=== PATIENT | female | born 1975 | race Caucasian/White ===

== ENCOUNTER 2018-08-15 10:30 | Day surgery (SDC) | payer MEDICARE ==
[~2018-08-15 10:30] MED LIST: PROPOFOL INJ 200 MG/20 ML VIAL IV ONE
--- NOTE | 2018-08-15 12:57 | Operative Report ---
Operative Report DATE OF SURGERY: 08/15/18 Operative Report: The risks, benefits and alternatives of the procedure including the risk of bleeding, perforation requiring surgery have been explained to the patient in detail and informed consent has been obtained. Patient is taken back to the endoscopy suite and placed in the left, lateral decubital position. Timeout was called. Propofol medication is administered. A rectal examination is done which did not reveal any masses, tears or fissures. An Olympus videoscope was introduced into the patient's rectum. The scope was then carefully advanced all the way to the cecum. The cecum was identified by the usual anatomical landmarks including the ileocecal valve as well as the appendiceal office. Photodocumentation is obtained. Scope was then sequentially pulled back via the various segments of the colon including the ascending colon, hepatic flexure, transverse colon, splenic flexure, descending colon and finally into the rectosigmoid portions of the colon. Retroflexion maneuvers performed. The risks benefits and alternatives of the procedure explained to the patient in detail and informed consent is obtained.A GIF Olympus video scope was inserted into the patient's mouth and hypopharynx, the esophagus is identified intubated and insufflated, the scope was then advanced through the esophagus stomach and duodenum, retroflexion maneuver is done, the esophagus stomach and first and second portions of the duodenum examined. PREOPERATIVE DIAGNOSIS: Iron deficiency anemia rule out GI bleed POSTOPERATIVE DIAGNOSIS: Gastric bypass operation. Duodenal biopsies rule out for celiac sprue. Gastritis status post biopsy. Mild terminal ileitis status post biopsy rule out Crohn's disease. No GI bleeding noted OPERATION: Colonoscopy with biopsy. EGD with biopsy SURGEON: JAMMIE MILLS ANESTHESIA: LMAC TISSUE REMOVED OR ALTERED: As noted above. COMPLICATIONS: None. ESTIMATED BLOOD LOSS: None. INTRAOPERATIVE FINDINGS: As noted above. PROCEDURE: Patient tolerated the procedure well. No immediate postprocedure complications are noted. Patient is discharged in good condition. Discharge date 08/15/2018. Discharge diet: Regular. Discharge activity: Regular. 2 to 3-week follow-up to discuss findings. Patient is instructed to call the office or proceed to the emergency room should there be any further problems or questions. Wait on the pathology.
[2018-08-15 14:10] VITALS: BP 112/62
== END 2018-08-15 12:21 | disposition home or self-care (01) ==
LOC: END 10:30
PROVIDERS: ATTEND Internal Medicine Gastroenterology
DX: K52.9 Noninfective gastroenteritis and colitis, unspecified (principal); K29.50 Unspecified chronic gastritis without bleeding; D50.0 Iron deficiency anemia secondary to blood loss (chronic); Z98.84 Bariatric surgery status; F17.210 Nicotine dependence, cigarettes, uncomplicated
CPT/HCPCS: 43239; 45380; 88305 ×2; 00813; J2704; 813

== ENCOUNTER 2018-09-23 20:10 | Emergency (ER) | payer MEDICARE ==
[~2018-09-23 20:10] MED LIST changes: -PROPOFOL INJ 200 MG/20 ML VIAL IV ONE; +SUCCINYLCHOLINE CHLORIDE INJ 200 MG/10 ML VIAL ONE
[2018-09-23] MEDS ORDERED: BENZTROPINE MESYLATE INJ 2 MG/2 ML AMPULE IM STA (20:39)
[2018-09-23] MEDS ORDERED: RINGERS SOLUTION,LACTATED 1,000 ML IV ONE (20:40)
--- NOTE | 2018-09-23 20:44 | ER Document Report ---
ED General - General Chief Complaint: Probable Seizure Stated Complaint: ALTERED MENTAL STATUS Time Seen by Provider: 09/23/18 20:23 Primary Care Provider: CHUCHO KAHN MD [Primary Care Provider] - Follow up as needed Notes: Patient is a 43-year-old female with bipolar disorder, and history of substance abuse that presents to the emergency department for chief complaint of seizure and twitching. Patient states that she was not feeling well, and is having spasming, and called to her fianc, who came inside and helped her to the couch, and shortly after she had what looked like to him as a seizure for lasting at least 1 minute, then resolved, the patient was seemingly confused afterwards, and may have bit her tongue, she is had seizures in the past, but they are due to Xanax withdrawal, she states she does not use Xanax currently. She also states she is been having tics and spasming, over the past several months, she does take multiple medications including Lamictal, Seroquel, buspirone, and an S SRI, for her mental health. She states she used to be on Cogentin but is not taking it now and has not for a while. She denies any alcohol use on a daily basis. At this time she states she is feeling better, just feeling "out of it", and still having the twitching, which is unchanged from the past few months. Denies having any chest pain, shortness of breath, nausea, vomiting or abdominal pain, denies having any recent illnesses such as fevers, cough or runny nose. Per EMS the patient's blood sugar was noted to be 57, she was given oral glucagon and it did come up above 130. Past Medical History: Bipolar disorder, history of multi-substance abuse Past Surgical History: Gastric bypass surgery Social History: Admits to smoking cigarettes, rare alcohol use, former multi- substance abuse Family History: Reviewed and noncontributory for presenting illness Allergies: Reviewed, see documented allergy list. REVIEW OF SYSTEMS: Other than noted above, the 12 point review of systems was reviewed with the patient and were negative, all pertinent findings are included in the HPI. PHYSICAL EXAMINATION: Vital signs reviewed, nursing noted reviewed. GENERAL: Patient is alert and oriented x4, but is somewhat somnolent, but is alert answering questions appropriately. HEAD: Atraumatic, normocephalic. EYES: Eyes appear normal, extraocular movements intact, sclera anicteric, conjunctiva are normal. PERRLA, no nystagmus ENT: nares patent, oropharynx clear without exudates. Moist mucous membranes. NECK: Normal range of motion, supple without lymphadenopathy LUNGS: Breath sounds clear to auscultation bilaterally and equal. No wheezes rales or rhonchi. HEART: Regular rate and rhythm without murmurs ABDOMEN: Soft, nontender, normoactive bowel sounds. No rebound, guarding, or rigidity. No masses appreciated. EXTREMITIES: Nontender, good range of motion, no pitting or edema. NEUROLOGICAL: On exam patient is having intermittent twitches/tics noted of the neck and upper and lower extremities bilaterally. moves all extremities spontaneously Motor and sensory grossly intact on exam. PSYCH: Normal mood, normal affect. SKIN: Warm, Dry, normal turgor, no rashes or lesions noted on exposed skin TRAVEL OUTSIDE OF THE [place] IN LAST 30 DAYS: No - Related Data Allergies/Adverse Reactions: No Known Allergies Allergy (Unverified 08/15/18 10:45) Past Medical History - Social History Smoking Status: Current Every Day Smoker Family History: Reviewed & Not Pertinent - Past Medical History Cardiac Medical History: Denies: Hx Coronary Artery Disease, Hx Heart Attack, Hx Hypertension Pulmonary Medical History: Denies: Hx Asthma, Hx Bronchitis, Hx COPD, Hx Pneumonia Neurological Medical History: Reports: Hx Seizures - 2006 FROM XANAX WITHDRAWAL. Denies: Hx Cerebrovascular Accident Musculoskeletal Medical History: Denies Hx Arthritis - Immunizations Hx Diphtheria, Pertussis, Tetanus Vaccination: No Physical Exam - Vital signs Vitals: Resp Pulse Ox 17 93 09/23/18 20:14 09/23/18 20:14 Course - Re-evaluation Re-evalutation: Patient seen and examined, vital signs reviewed, initial exam the patient was mildly somnolent, but answering questions appropriately, noted to have some tremoring on exam, which is felt to be possible extraparametal symptoms from the multiple psych medications that she is on including Seroquel, lamotrigine, Wellbutrin and an SSRI, she did improve after receiving Cogentin, blood work is obtained, however shortly into the patient's ED course, she became unresponsive, and was having nystagmus, and was not responding to any verbal or noxious stimuli, and was concerning for possible recurrence of seizure, and patient at that point was given 2 mg of Ativan, however she continued to be somnolent, and was not responsive, was given additional 2 mg, she did become more responsive, was opening eyes, but not following commands, at this point she was sent over the CT scanner, and her CT appeared to be negative for any acute intracranial abnormality. 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 At this point it was decided to intubate the patient, which is done so successfully with the 7.5 ET tube, patient was marlyn maryjane on the ventilator, was oxygenating well, blood pressure remained stable, she was initially placed on Versed infusion, however patient became agitated on the ventilator, was asynchronous, and was therefore given a bolus of IV fentanyl 150 mcg, and switched to propofol infusion, and weaned off the Versed. Patient was more stable on the ventilator, blood pressure remained stable, at this point due to my concern for nonconvulsive status epilepticus, I placed a call to [facility] to transfer the patient, patient's blood work was reviewed, is essentially unremarkable, with the exception of her blood glucose which is 55, however when Accu-Chek was performed, it was 104, and repeat was in the 90s, and continued to be monitored, was not dropping further. Case was discussed with the assistant professor of nursing at [facility], who graciously except the patient on the service, attending physician will be Dr. Fleming, patient be transported by ALS ground transport. Patient is remained stable on the ventilator, with propofol for sedation, blood pressures remained stable, heart rate is well, ABG was obtained demonstrated very mild respiratory acidosis, vent settings were adjusted, her oxygen FiO2 was decreased to 40%, patient was tolerating well, 100% SPO2. Patient's fianc was updated at bedside, understands plan of care and transfer to tertiary facility. Laboratory 09/23/18 09/23/18 09/23/18 20:15 20:49 20:49 WBC 7.0 RBC 4.18 Hgb 10.1 L Hct 31.7 L MCV 76 L MCH 24.1 L MCHC 31.8 L RDW 25.2 H Plt Count 200 Seg Neutrophils % 70.5 Lymphocytes % 15.8 Monocytes % 9.4 Eosinophils % 3.2 Basophils % 1.1 Absolute Neutrophils 5.0 Absolute Lymphocytes 1.1 Absolute Monocytes 0.7 Absolute Eosinophils 0.2 Absolute Basophils 0.1 Platelet Comment ADEQUATE Polychromasia SLIGHT Hypochromasia 1+ Poikilocytosis SLIGHT Anisocytosis 3+ Target Cells SLIGHT Sodium 136.9 L Potassium 4.6 Chloride 105 Carbon Dioxide 27 Anion Gap 5 BUN 10 Creatinine 0.83 Est GFR ( Amer) > 60 Est GFR (Non-Af Amer) > 60 Glucose 55 L POC Glucose 89 Calcium 8.3 L Total Bilirubin Direct Bilirubin Neonat Total Bilirubin Neonat Direct Bilirubin Neonat Indirect Bili AST ALT Alkaline Phosphatase Total Protein Albumin Serum HCG, Qual Salicylates Acetaminophen Serum Alcohol 09/23/18 09/23/18 09/23/18 20:49 21:26 21:51 WBC RBC Hgb Hct MCV MCH MCHC RDW Plt Count Seg Neutrophils % Lymphocytes % Monocytes % Eosinophils % Basophils % Absolute Neutrophils Absolute Lymphocytes Absolute Monocytes Absolute Eosinophils Absolute Basophils Platelet Comment Polychromasia Hypochromasia Poikilocytosis Anisocytosis Target Cells Sodium Potassium Chloride Carbon Dioxide Anion Gap BUN Creatinine Est GFR ( Amer) Est GFR (Non-Af Amer) Glucose POC Glucose 105 Calcium Total Bilirubin 0.2 Direct Bilirubin 0.2 Neonat Total Bilirubin Not Reportable Neonat Direct Bilirubin Not Reportable Neonat Indirect Bili Not Reportable AST 58 H ALT 49 Alkaline Phosphatase 114 Total Protein 6.1 L Albumin 3.4 L Serum HCG, Qual NEGATIVE Salicylates Acetaminophen Serum Alcohol 09/23/18 09/23/18 09/23/18 21:51 22:02 22:34 WBC RBC Hgb Hct MCV MCH MCHC RDW Plt Count Seg Neutrophils % Lymphocytes % Monocytes % Eosinophils % Basophils % Absolute Neutrophils Absolute Lymphocytes Absolute Monocytes Absolute Eosinophils Absolute Basophils Platelet Comment Polychromasia Hypochromasia Poikilocytosis Anisocytosis Target Cells Sodium Potassium Chloride Carbon Dioxide Anion Gap BUN Creatinine Est GFR ( Amer) Est GFR (Non-Af Amer) Glucose POC Glucose 91 94 Calcium Total Bilirubin Direct Bilirubin Neonat Total Bilirubin Neonat Direct Bilirubin Neonat Indirect Bili AST ALT Alkaline Phosphatase Total Protein Albumin Serum HCG, Qual Salicylates < 1.0 L Acetaminophen < 10 L Serum Alcohol < 10 Laboratory 09/23/18 09/23/18 09/23/18 20:15 20:49 20:49 WBC 7.0 RBC 4.18 Hgb 10.1 L Hct 31.7 L MCV 76 L MCH 24.1 L MCHC 31.8 L RDW 25.2 H Plt Count 200 Seg Neutrophils % 70.5 Lymphocytes % 15.8 Monocytes % 9.4 Eosinophils % 3.2 Basophils % 1.1 Absolute Neutrophils 5.0 Absolute Lymphocytes 1.1 Absolute Monocytes 0.7 Absolute Eosinophils 0.2 Absolute Basophils 0.1 Platelet Comment ADEQUATE Polychromasia SLIGHT Hypochromasia 1+ Poikilocytosis SLIGHT Anisocytosis 3+ Target Cells SLIGHT Carbonic Acid HCO3/H2CO3 Ratio ABG pH ABG pCO2 ABG pO2 ABG HCO3 ABG Total CO2 ABG O2 Saturation ABG Base Excess FiO2 Sodium 136.9 L Potassium 4.6 Chloride 105 Carbon Dioxide 27 Anion Gap 5 BUN 10 Creatinine 0.83 Est GFR ( Amer) > 60 Est GFR (Non-Af Amer) > 60 Glucose 55 L POC Glucose 89 Calcium 8.3 L Total Bilirubin Direct Bilirubin Neonat Total Bilirubin Neonat Direct Bilirubin Neonat Indirect Bili AST ALT Alkaline Phosphatase Total Protein Albumin Serum HCG, Qual Urine Color Urine Appearance Urine pH Ur Specific [place] Urine Protein Urine Glucose (UA) Urine Ketones Urine Blood Urine Nitrite Urine Bilirubin Urine Urobilinogen Ur Leukocyte Esterase Urine WBC (Auto) U Hyaline Cast (Auto) Urine Mucus (Auto) Urine Ascorbic Acid Salicylates Urine Opiates Screen Urine Methadone Screen Acetaminophen Ur Barbiturates Screen Ur Phencyclidine Scrn Ur Amphetamines Screen U Benzodiazepines Scrn Urine Cocaine Screen U Marijuana (THC) Screen Serum Alcohol 09/23/18 09/23/18 09/23/18 20:49 21:26 21:51 WBC RBC Hgb Hct MCV MCH MCHC RDW Plt Count Seg Neutrophils % Lymphocytes % Monocytes % Eosinophils % Basophils % Absolute Neutrophils Absolute Lymphocytes Absolute Monocytes Absolute Eosinophils Absolute Basophils Platelet Comment Polychromasia Hypochromasia Poikilocytosis Anisocytosis Target Cells Carbonic Acid HCO3/H2CO3 Ratio ABG pH ABG pCO2 ABG pO2 ABG HCO3 ABG Total CO2 ABG O2 Saturation ABG Base Excess FiO2 Sodium Potassium Chloride Carbon Dioxide Anion Gap BUN Creatinine Est GFR ( Amer) Est GFR (Non-Af Amer) Glucose POC Glucose 105 Calcium Total Bilirubin 0.2 Direct Bilirubin 0.2 Neonat Total Bilirubin Not Reportable Neonat Direct Bilirubin Not Reportable Neonat Indirect Bili Not Reportable AST 58 H ALT 49 Alkaline Phosphatase 114 Total Protein 6.1 L Albumin 3.4 L Serum HCG, Qual NEGATIVE Urine Color Urine Appearance Urine pH Ur Specific [place] Urine Protein Urine Glucose (UA) Urine Ketones Urine Blood Urine Nitrite Urine Bilirubin Urine Urobilinogen Ur Leukocyte Esterase Urine WBC (Auto) U Hyaline Cast (Auto) Urine Mucus (Auto) Urine Ascorbic Acid Salicylates Urine Opiates Screen Urine Methadone Screen Acetaminophen Ur Barbiturates Screen Ur Phencyclidine Scrn Ur Amphetamines Screen U Benzodiazepines Scrn Urine Cocaine Screen U Marijuana (THC) Screen Serum Alcohol 09/23/18 09/23/18 09/23/18 21:51 22:02 22:34 WBC RBC Hgb Hct MCV MCH MCHC RDW Plt Count Seg Neutrophils % Lymphocytes % Monocytes % Eosinophils % Basophils % Absolute Neutrophils Absolute Lymphocytes Absolute Monocytes Absolute Eosinophils Absolute Basophils Platelet Comment Polychromasia Hypochromasia Poikilocytosis Anisocytosis Target Cells Carbonic Acid HCO3/H2CO3 Ratio ABG pH ABG pCO2 ABG pO2 ABG HCO3 ABG Total CO2 ABG O2 Saturation ABG Base Excess FiO2 Sodium Potassium Chloride Carbon Dioxide Anion Gap BUN Creatinine Est GFR ( Amer) Est GFR (Non-Af Amer) Glucose POC Glucose 91 94 Calcium Total Bilirubin Direct Bilirubin Neonat Total Bilirubin Neonat Direct Bilirubin Neonat Indirect Bili AST ALT Alkaline Phosphatase Total Protein Albumin Serum HCG, Qual Urine Color Urine Appearance Urine pH Ur Specific [place] Urine Protein Urine Glucose (UA) Urine Ketones Urine Blood Urine Nitrite Urine Bilirubin Urine Urobilinogen Ur Leukocyte Esterase Urine WBC (Auto) U Hyaline Cast (Auto) Urine Mucus (Auto) Urine Ascorbic Acid Salicylates < 1.0 L Urine Opiates Screen Urine Methadone Screen Acetaminophen < 10 L Ur Barbiturates Screen Ur Phencyclidine Scrn Ur Amphetamines Screen U Benzodiazepines Scrn Urine Cocaine Screen U Marijuana (THC) Screen Serum Alcohol < 10 09/23/18 09/23/18 09/24/18 23:10 23:10 00:22 WBC RBC Hgb Hct MCV MCH MCHC RDW Plt Count Seg Neutrophils % Lymphocytes % Monocytes % Eosinophils % Basophils % Absolute Neutrophils Absolute Lymphocytes Absolute Monocytes Absolute Eosinophils Absolute Basophils Platelet Comment Polychromasia Hypochromasia Poikilocytosis Anisocytosis Target Cells Carbonic Acid 1.46 H HCO3/H2CO3 Ratio 17:1 ABG pH 7.34 L ABG pCO2 48.4 H ABG pO2 138.6 H ABG HCO3 25.5 H ABG Total CO2 27.0 H ABG O2 Saturation 98.6 H ABG Base Excess -0.7 FiO2 40% Sodium Potassium Chloride Carbon Dioxide Anion Gap BUN Creatinine Est GFR ( Amer) Est GFR (Non-Af Amer) Glucose POC Glucose Calcium Total Bilirubin Direct Bilirubin Neonat Total Bilirubin Neonat Direct Bilirubin Neonat Indirect Bili AST ALT Alkaline Phosphatase Total Protein Albumin Serum HCG, Qual Urine Color YELLOW Urine Appearance CLEAR Urine pH 6.0 Ur Specific [place] 1.010 Urine Protein NEGATIVE Urine Glucose (UA) NEGATIVE Urine Ketones NEGATIVE Urine Blood NEGATIVE Urine Nitrite NEGATIVE Urine Bilirubin NEGATIVE Urine Urobilinogen NEGATIVE Ur Leukocyte Esterase NEGATIVE Urine WBC (Auto) 1 U Hyaline Cast (Auto) 1 Urine Mucus (Auto) RARE Urine Ascorbic Acid NEGATIVE Salicylates Urine Opiates Screen NEGATIVE Urine Methadone Screen NEGATIVE Acetaminophen Ur Barbiturates Screen NEGATIVE Ur Phencyclidine Scrn NEGATIVE Ur Amphetamines Screen NEGATIVE U Benzodiazepines Scrn NEGATIVE Urine Cocaine Screen NEGATIVE U Marijuana (THC) Screen NEGATIVE Serum Alcohol 09/24/18 00:27 WBC RBC Hgb Hct MCV MCH MCHC RDW Plt Count Seg Neutrophils % Lymphocytes % Monocytes % Eosinophils % Basophils % Absolute Neutrophils Absolute Lymphocytes Absolute Monocytes Absolute Eosinophils Absolute Basophils Platelet Comment Polychromasia Hypochromasia Poikilocytosis Anisocytosis Target Cells Carbonic Acid HCO3/H2CO3 Ratio ABG pH ABG pCO2 ABG pO2 ABG HCO3 ABG Total CO2 ABG O2 Saturation ABG Base Excess FiO2 Sodium Potassium Chloride Carbon Dioxide Anion Gap BUN Creatinine Est GFR ( Amer) Est GFR (Non-Af Amer) Glucose POC Glucose 91 Calcium Total Bilirubin Direct Bilirubin Neonat Total Bilirubin Neonat Direct Bilirubin Neonat Indirect Bili AST ALT Alkaline Phosphatase Total Protein Albumin Serum HCG, Qual Urine Color Urine Appearance Urine pH Ur Specific [place] Urine Protein Urine Glucose (UA) Urine Ketones Urine Blood Urine Nitrite Urine Bilirubin Urine Urobilinogen Ur Leukocyte Esterase Urine WBC (Auto) U Hyaline Cast (Auto) Urine Mucus (Auto) Urine Ascorbic Acid Salicylates Urine Opiates Screen Urine Methadone Screen Acetaminophen Ur Barbiturates Screen Ur Phencyclidine Scrn Ur Amphetamines Screen U Benzodiazepines Scrn Urine Cocaine Screen U Marijuana (THC) Screen Serum Alcohol - Vital Signs Vital signs: Temp Pulse Resp BP Pulse Ox 98.5 F 12 149/97 H 100 09/23/18 20:34 09/24/18 00:36 09/24/18 00:36 09/24/18 00:36 - Laboratory Result Diagrams: 09/23/18 20:49 09/23/18 20:49 Laboratory results interpreted by me: 09/23/18 09/23/18 09/23/18 20:49 20:49 21:51 Hgb 10.1 L Hct 31.7 L MCV 76 L MCH 24.1 L MCHC 31.8 L RDW 25.2 H Carbonic Acid ABG pH ABG pCO2 ABG pO2 ABG HCO3 ABG Total CO2 ABG O2 Saturation Sodium 136.9 L Glucose 55 L Calcium 8.3 L AST 58 H Total Protein 6.1 L Albumin 3.4 L Salicylates Acetaminophen 09/23/18 09/24/18 21:51 00:22 Hgb Hct MCV MCH MCHC RDW Carbonic Acid 1.46 H ABG pH 7.34 L ABG pCO2 48.4 H ABG pO2 138.6 H ABG HCO3 25.5 H ABG Total CO2 27.0 H ABG O2 Saturation 98.6 H Sodium Glucose Calcium AST Total Protein Albumin Salicylates < 1.0 L Acetaminophen < 10 L - EKG Interpretation by Me Additional EKG results interpreted by me: EKG demonstrates sinus rhythm with a ventricular rate of 87 bpm, no axis, normal intervals, no evidence of acute ischemia in this EKG, no prior for comparison at this time. Procedures - Intubation Orotracheal Airway evaluation: Normal anatomy Mallampati Classification: Class 2 Medications: Etomidate - 20mg, Succinylcholine - 150mg Intubation method: Orotracheal Blade type: Glenda Blade size: 4 Equipment used: Glidescope ETT size: 7.5 ETT secured at: Lips ETT secured at (cm): 23 Breath Sounds after Intubation: Equal End tidal CO2 confirmed: Yes Ventilator settings: SIMV Tidal volume: 500 FiO2: 60 Respirations: 12 Pressure support: 10 PEEP: 5 Post Intubation Xray: Yes Intubation Complications: No complications Critical Care Note - Critical Care Note Total time excluding time spent on procedures (mins): 55 Comments: Critical care time 55 minutes exclusive from separate billable procedures for a patient requiring complex medical decision making, and high potential for clinical deterioration. In a patient with concern for nonconvulsive status epilepticus, requiring intubation and transfer to tertiary facility. Time spent obtaining history from patient or surrogate, discussions with consultants, development of treatment plan with patient or surrogate, evaluation of patient's response to treatment, examination of patient, ordering and performing treatments and interventions, ordering and review of laboratory studies, re- evaluation of patient's condition, ordering and review of radiographic studies and review of old charts Discharge - Discharge Clinical Impression: Status epilepticus Acute respiratory failure Qualifiers: Respiratory failure complication: unspecified whether with hypoxia or hypercapnia Qualified Code(s): J96.00 - Acute respiratory failure, unspecified whether with hypoxia or hypercapnia Condition: Stable Disposition: [facility] Referrals: CHUCHO KAHN MD [Primary Care Provider] - Follow up as needed
[2018-09-23 21:06] LABS: ABSOLUTE BASOPHILS # (AUTO) 0.1 10^3/uL (0.0-0.2); ABSOLUTE EOSINOPHILS # (AUTO) 0.2 10^3/uL (0.0-0.6); ABSOLUTE LYMPHOCYTES (AUTO) 1.1 10^3/uL (0.5-4.7); ABSOLUTE MONOCYTES (AUTO) 0.7 10^3/uL (0.1-1.4); BASOPHILS % (AUTO) 1.1 % (0-2); EOSINOPHILS % (AUTO) 3.2 % (0-6); HEMATOCRIT 31.7 % (36.0-47.0); HEMOGLOBIN 10.1 g/dL (12.0-15.5); LYMPHOCYTES % (AUTO) 15.8 % (13-45); MEAN CORPUSCULAR HEMOGLOBIN 24.1 pg (27.0-33.4); MEAN CORPUSCULAR HGB CONC 31.8 g/dL (32.0-36.0); MEAN CORPUSCULAR VOLUME 76 fl (80-97); MONOCYTES % (AUTO) 9.4 % (3-13); PLATELET COUNT 200 10^3/uL (150-450); RED BLOOD COUNT 4.18 10^6/uL (3.72-5.28); RED CELL DISTRIBUTION WIDTH 25.2 % (11.5-14.0); SEGMENTED NEUTROPHILS % (AUTO) 70.5 % (42-78); TOTAL CELLS COUNTED % (AUTO) 100 %
[2018-09-23 21:21] LABS: ANION GAP 5 (5-19); ANISOCYTOSIS 3+; BLOOD UREA NITROGEN 10 mg/dL (7-20); CALCIUM 8.3 mg/dL (8.4-10.2); CARBON DIOXIDE 27 mmol/L (22-30); CHLORIDE 105 mmol/L (98-107); HYPOCHROMASIA 1+; PLATELET COMMENT ADEQUATE; POIKILOCYTOSIS SLIGHT; POLYCHROMASIA SLIGHT; POTASSIUM 4.6 mmol/L (3.6-5.0); TARGET CELLS SLIGHT
[2018-09-23 21:23] LABS: GLUCOSE 55 mg/dL (75-110)
[2018-09-23] MEDS ORDERED: DEXTROSE 50%-WATER 25 GM/50 ML DISP.SYRIN IV ONE (21:23)
[2018-09-23] MEDS ORDERED: LORAZEPAM INJ 2 MG/1 ML VIAL ONE ×2 (22:01→22:05)
[2018-09-23] MEDS ORDERED: ETOMIDATE INJ/PF 20 MG/10 ML SDV IV ONE (22:06)
[2018-09-23] MEDS ORDERED: LORAZEPAM INJ 2 MG/1 ML VIAL IV ONE (22:06)
[2018-09-23] MEDS ORDERED: MIDAZOLAM HCL 50 MG/100 ML RTUINJ IV PRN (22:07)
[2018-09-23] MEDS ORDERED: SUCCINYLCHOLINE CHLORIDE INJ 200 MG/10 ML VIAL IV ONE (22:07)
[2018-09-23 22:17] LABS: ALBUMIN 3.4 g/dL (3.5-5.0); ALKALINE PHOSPHATASE 114 U/L (38-126); ASPARTATE AMINO TRANSFERASE 58 U/L (14-36); BILIRUBIN,DIRECT 0.2 mg/dL (0.0-0.4); BILIRUBIN,TOTAL 0.2 mg/dL (0.2-1.3); TOTAL PROTEIN 6.1 g/dL (6.3-8.2)
[2018-09-23 22:23] LABS: ACETAMINOPHEN < 10 ug/mL (10-30); ALCOHOL < 10 mg/dL (NONE DETECTED); SALICYLATE < 1.0 mg/dL (2.0-20.0)
[2018-09-23] MEDS ORDERED: AMMONIA INHALANTS 10 AMPUL/BOX IH ONE (22:26)
--- NOTE | 2018-09-23 22:38 | RADIOLOGY REPORT (SQ) ---
EXAM DESCRIPTION: [facility]: CT HEAD WITHOUT IV CONTRAST CLINICAL HISTORY: 43 years Female; seizures TECHNIQUE: Noncontrast CT head. All CT scans at this facility use dose modulation, iterative reconstruction, and/or weight based dosing when appropriate to reduce radiation dose to as low as reasonably achievable. COMPARISON: None. FINDINGS: Horne matter, white matter, ventricles, and cisterns are within normal limits. No acute hemorrhage or mass effect. Visualized portions of paranasal sinuses and mastoids are clear. Visualized portions of the calvarium are within normal limits. IMPRESSION: 1. Normal noncontrast CT of the brain
[2018-09-23] MEDS ORDERED: FENTANYL CITRATE INJ/PF 100 MCG/2 ML AMPUL ONE (22:59)
[2018-09-23] MEDS ORDERED: PROPOFOL 1,000 MG/100 ML INFUS..BTL IV ONE (23:04)
[2018-09-23] MEDS: PROPOFOL 1,000 MG/100 ML INFUS..BTL IV PRN (23:05)
--- NOTE | 2018-09-23 23:24 | RADIOLOGY REPORT (SQ) ---
EXAM DESCRIPTION: XR CHEST 1 VIEW COMPLETED DATE/TME: 09/23/2018 00:00 CLINICAL HISTORY: 43 years Female, POST INTUBATION COMPARISON: None. NUMBER OF VIEWS/TECHNIQUE: 1/AP FINDINGS: Adequate lung volume, small linear atelectasis or scar of the left lower lung field, normal cardiac silhouette, and intact bony thorax. Adequate appearing endotracheal tube. Adequate appearing enteric tube. IMPRESSION: No acute cardiopulmonary findings. Intubated.
[2018-09-23 23:30] LABS: APPEARANCE,URINE CLEAR; BILIRUBIN,URINE NEGATIVE (NEGATIVE); COLOR,URINE YELLOW; GLUCOSE, URINE NEGATIVE (NEGATIVE); KETONES,URINE NEGATIVE (NEGATIVE); LEUKOCYTE ESTERASE,URINE NEGATIVE (NEGATIVE); NITRITE,URINE NEGATIVE (NEGATIVE); PROTEIN,URINE NEGATIVE (NEGATIVE); UROBILINOGEN,URINE NEGATIVE mg/dL (<2.0)
[2018-09-23] MEDS ORDERED: FENTANYL CITRATE INJ/PF 100 MCG/2 ML AMPUL IV ONE (23:30)
[2018-09-23 23:42] LABS: URINE AMPHETAMINES SCREEN NEGATIVE; URINE BARBITURATES SCREEN NEGATIVE; URINE BENZODIAZEPINES SCREEN NEGATIVE; URINE COCAINE SCREEN NEGATIVE; URINE MARIJUANA (THC) SCREEN NEGATIVE; URINE METHADONE SCREEN NEGATIVE; URINE PHENCYCLIDINE SCREEN NEGATIVE
[2018-09-24 00:39] LABS: ARTERIAL BLOOD BASE EXCESS -0.7 mmol/L; ARTERIAL BLOOD H2CO3 1.46 mmol/L (1.05-1.35); ARTERIAL BLOOD HCO3 25.5 mmol/L (20-24); ARTERIAL BLOOD O2 SATURATION 98.6 % (94-98); ARTERIAL BLOOD PCO2 48.4 mmHg (35-45); ARTERIAL BLOOD PH 7.34 (7.35-7.45); ARTERIAL BLOOD PO2 138.6 mmHg (80-100)
[2018-09-24 00:41] LABS: ARTERIAL BLOOD FIO2 40%
[2018-09-24 02:00] VITALS: BP 153/94
[2018-09-24] MEDS: PROPOFOL 1,000 MG/100 ML INFUS..BTL IV PRN (02:09)
== END 2018-09-24 02:30 | disposition short-term general hospital (02) ==
LOC: ER 20:10
PROC: 0BH17EZ Insertion of Endotracheal Airway into Trachea, Via Natural or Artificial Opening (ICD-10-PCS; principal; 2018-09-23)
DX: J96.00 Acute respiratory failure, unspecified whether with hypoxia or hypercapnia (principal); G40.901 Epilepsy, unspecified, not intractable, with status epilepticus; R41.82 Altered mental status, unspecified; F19.10 Other psychoactive substance abuse, uncomplicated; M62.838 Other muscle spasm; Z79.899 Other long term (current) drug therapy; F17.210 Nicotine dependence, cigarettes, uncomplicated
CPT/HCPCS: 99291; 96361; 96374; 96375; 36415; 82962; 80307 ×4; 82803; 84703; 85025; 80076; 80048; 81001; 71045; 70450; 94660; 36600; 31500; A9270; J0515; J3010; J2704 ×2; J2060; J0330; J2250; J7120; J3490

== ENCOUNTER 2019-07-19 11:30 | Day surgery (SDC) | payer MEDICARE, MEDICAID ==
[2019-07-19] MEDS ORDERED: PROPOFOL INJ 200 MG/20 ML VIAL IV ONE (11:53)
[2019-07-19] MEDS ORDERED: DIPHENHYDRAMINE HCL 50 MG/ML VIAL IV PRN (12:21)
[2019-07-19] MEDS ORDERED: OXYCODONE-ACETAMINOPHEN 5-325 MG TABLET PO PRN ×2 (12:21)
[2019-07-19] MEDS ORDERED: FENTANYL CITRATE INJ/PF 100 MCG/2 ML AMPUL IV PRN ×3 (12:21)
[2019-07-19] MEDS ORDERED: MEPERIDINE HCL/PF INJ 25 MG/1 ML DISP.SYRIN IV PRN (12:21)
[2019-07-19] MEDS ORDERED: PROMETHAZINE HCL INJ 25 MG/1 ML VIAL IV PRN ×2 (12:21)
[2019-07-19 14:19] VITALS: BP 135/81
--- NOTE | 2019-07-19 20:06 | Operative Report ---
Operative Report DATE OF SURGERY: 07/19/19 Operative Report: The risks, benefits and alternatives are discussed with the patient in detail Propofol sedation is administered EGD is completed patient appears to have a gastric pouch with a Edward N-Y anastomosis both efferent and afferent loops are visualized PREOPERATIVE DIAGNOSIS: epigastric pain , rule out ulcer POSTOPERATIVE DIAGNOSIS: inflammation in the gastric pouch. biopsies obtained. small gastric erosion noted , likely explains the pain OPERATION: EGD with biopsy SURGEON: JAMMIE MILLS ANESTHESIA: LMAC TISSUE REMOVED OR ALTERED: as noted above COMPLICATIONS: none ESTIMATED BLOOD LOSS: none INTRAOPERATIVE FINDINGS: as noted above PROCEDURE: patient tolerated the procedure well no post procedure complications are noted patient is discharged in good condition discharge date: 07/19/19 discharge diet and activity : regular follow up on biopsy patient to call the office or go to ED if needed
== END 2019-07-19 13:55 | disposition home or self-care (01) ==
LOC: OROUT 11:30
PROVIDERS: ATTEND Internal Medicine Gastroenterology
DX: K29.50 Unspecified chronic gastritis without bleeding (principal); K25.9 Gastric ulcer, unspecified as acute or chronic, without hemorrhage or perforation; F17.210 Nicotine dependence, cigarettes, uncomplicated; B18.2 Chronic viral hepatitis C; K21.9 Gastro-esophageal reflux disease without esophagitis; Z79.899 Other long term (current) drug therapy; Z03.818 Encounter for observation for suspected exposure to other biological agents ruled out
CPT/HCPCS: 43239; 82962; 81025; 88342 ×2; 88305 ×2; 00731; U0003; J2704; 731; 87635

== ENCOUNTER 2019-08-02 07:43 | Emergency (ER) | payer MEDICARE, MEDICAID ==
[2019-08-02] MEDS ORDERED: PREDNISONE 20 MG TABLET PO ONE (10:03)
[2019-08-02] MEDS ORDERED: KETOROLAC TROMETHAMINE 60 MG/2 ML SDV IM ONE (10:03)
--- NOTE | 2019-08-02 10:09 | ER Document Report ---
ED Extremity Problem, Lower - General Chief Complaint: Leg Pain Stated Complaint: LEG PAIN Time Seen by Provider: 08/02/19 09:53 Primary Care Provider: CHUCHO KAHN MD [Primary Care Provider] - Follow up as needed Notes: CHIEF COMPLAINT: Low back pain and leg pain HPI: 44-year-old female who is obese who has a history of prior lumbar surgery years ago presenting for pain in the lower back with radiation through the gluteal region and down the anterior left thigh. No perineal numbness. No incontinence of urine or bowel. Denies prior history of similar discomfort. Did not call her PCP for evaluation of symptoms. No fevers no pelvic or abdominal pain no flank pain ROS: See HPI - all other systems were reviewed and are otherwise negative Constitutional: no fever GI: no vomiting, no diarrhea, no abdominal pain : no dysuria Integumentary: no rash Allergy: no hives Musculoskeletal: no extremity pain or swelling, positive back pain Neurological: no numbness/tingling, no weakness MEDICATIONS: I agree with the patient medications as charted by the RN. ALLERGIES: I agree with the allergies as charted by the RN. PAST MEDICAL HISTORY/PAST SURGICAL HISTORY: Reviewed and agree as charted by RN. SOCIAL HISTORY: Reviewed and agree as charted by RN. FAMILY HISTORY: No significant familial comorbid conditions directly related to patient complaint EXAM: Reviewed vital signs as charted by RN. CONSTITUTIONAL: Alert and oriented and responds appropriately to questions. Well-appearing; well-nourished, mild distress secondary to pain HEAD: Normocephalic; atraumatic EYES: PERRL; Conjunctivae clear, sclerae non-icteric ENT: normal nose; no rhinorrhea; moist mucous membranes NECK: Supple without meningismus; non-tender; no cervical lymphadenopathy, no masses CARD: RRR; no murmurs, no clicks, no rubs, no gallops; symmetric distal pulses RESP: Normal chest excursion without splinting or tachypnea; breath sounds clear and equal bilaterally; no wheezes, no rhonchi, no rales, pulse oximetry 98% on room air not hypoxic ABD/GI: Normal bowel sounds; non-distended; soft, non-tender, no rebound, no guarding; no palpable organomegaly or masses. BACK: The back appears normal and is non-tender to palpation directly over the lumbar spine, there is no CVA tenderness. Mild tenderness to the upper aspect of the left gluteus into the lateral thigh on the left EXT: Normal ROM in all joints; non-tender to palpation; no cyanosis, no effusions, no edema SKIN: Normal color for age and race; warm; dry; good turgor; no acute lesions noted NEURO: Moves all extremities equally; Motor and sensory function intact. Strength equal 5/5 bilateral lower extremities. Sensation intact and equal bilateral lower extremities. Straight leg raise is negative. No saddle anesthesia on exam. DTRs 2+ intact and equal bilateral lower extremities. PSYCH: The patient's mood and manner are appropriate. Grooming and personal hygiene are appropriate. 44-year-old female presenting for evaluation of pain in the left lower back through the gluteus into the thigh consistent with sciatica. No saddle anesthesia on exam to suggest cauda equina. Will treat with steroids anti- inflammatories short course of pain medication referral to orthopedics MDM: TRAVEL OUTSIDE OF THE [place] IN LAST 30 DAYS: No - Related Data Allergies/Adverse Reactions: No Known Allergies Allergy (Unverified 08/15/18 10:45) Home Medications: Motrin PRN, Chantix bid, omperazole, epclusa, serqauil Past Medical History - Social History Smoking Status: Current Some Day Smoker Chew tobacco use (# tins/day): No Frequency of alcohol use: None Drug Abuse: None Family History: Reviewed & Not Pertinent Patient has homicidal ideation: No - Past Medical History Cardiac Medical History: Denies: Hx Coronary Artery Disease, Hx Heart Attack, Hx Hypertension Pulmonary Medical History: Denies: Hx Asthma, Hx Bronchitis, Hx COPD, Hx Pneumonia Neurological Medical History: Reports: Hx Seizures - 2006 FROM XANAX WITHDRAWAL. Denies: Hx Cerebrovascular Accident Renal/ Medical History: Denies: Hx Peritoneal Dialysis Musculoskeletal Medical History: Denies Hx Arthritis - Immunizations Hx Diphtheria, Pertussis, Tetanus Vaccination: No Physical Exam - Vital signs Vitals: Temp Pulse Resp BP Pulse Ox 99.1 F 81 20 135/79 H 97 08/02/19 07:47 08/02/19 07:47 08/02/19 07:47 08/02/19 07:47 08/02/19 07:47 Course - Vital Signs Vital signs: Temp Pulse Resp BP Pulse Ox 99.1 F 81 20 135/79 H 97 08/02/19 08:03 08/02/19 07:47 08/02/19 07:47 08/02/19 07:47 08/02/19 07:47 Discharge - Discharge Clinical Impression: Sciatica, left side Condition: Stable Disposition: HOME, SELF-CARE Instructions: Sciatica ([facility]) Additional Instructions: 1. Warm heat to the lower back twice daily 2. no heavy lifting for 2-3 days 3. medications as prescribed, no driving on narcotics 4. follow up with orthopedics for further evaluation and treatment as needed for any continuing pain or problems, call for appt. 5. return to the ER for any onset of incontinence of urine, fever > 101 or worsening condition Prescriptions: Prednisone [Deltasone 20 mg Tablet] 2 tab PO DAILY 5 Days #10 tablet Hydrocodone/Acetaminophen [[place] 5-325 mg Tablet] 1 tab PO Q4 PRN #15 tablet PRN Reason: Diclofenac Sodium [Voltaren 50 Mg Tablet.] 50 mg PO BID #20 tablet. Referrals: CHUCHO KAHN MD [Primary Care Provider] - Follow up as needed VAISHALI LAKHANI JR, DO [ACTIVE PROVISIONAL STAFF] - Follow up as needed
[2019-08-02 10:38] VITALS: BP 127/86
== END 2019-08-02 10:38 | disposition home or self-care (01) ==
LOC: ER 07:43
DX: M54.32 Sciatica, left side (principal); M54.5 Low back pain; M79.605 Pain in left leg; Z79.899 Other long term (current) drug therapy; F17.200 Nicotine dependence, unspecified, uncomplicated
CPT/HCPCS: 99283; 96372; J1885; A9270; J7512

== ENCOUNTER 2019-08-16 08:41 | Emergency (ER) | payer MEDICARE, MEDICAID ==
[2019-08-16] MEDS ORDERED: HYDROMORPHONE HCL INJ/PF 2 MG/ML AMPULE IM ONE ×2 (11:06→12:23)
[2019-08-16] MEDS ORDERED: KETOROLAC TROMETHAMINE 60 MG/2 ML SDV IM ONE (11:06)
--- NOTE | 2019-08-16 11:09 | ER Document Report ---
HPI - HPI Patient complains to provider of: low back pain Time Seen by Provider: 08/16/19 10:37 Onset: Other - 3 wk Onset/Duration: Persistent Quality of pain: Sharp Pain Level: 5 Context: Patient presents complaint of low back pain for the past 3 weeks that radiates to the left hip. Patient also complains of left lower anterior leg tenderness. Patient did have lateral thigh tenderness that seems to be better at this time. Patient denies any fever, urinary retention or incontinence. Patient denies any injury. Associated Symptoms: denies: Fever, Headache, Weakness Exacerbated by: Movement, Walking Relieved by: Denies Similar symptoms previously: Yes Recently seen / treated by doctor: No - ROS ROS below otherwise negative: Yes Systems Reviewed and Negative: Yes All other systems reviewed and negative - NEURO Neurology: DENIES: Headache, Weakness - GASTROINTESTINAL Gastrointestinal: DENIES: Nausea - REPRODUCTIVE Reproductive: DENIES: : - MUSCULOSKELETAL Musculoskeletal: REPORTS: Extremity pain, Back Pain - DERM Skin Color: Normal Past Medical History - General Information source: Patient - Social History Smoking Status: Current Every Day Smoker Frequency of alcohol use: None Drug Abuse: None Occupation: none Family History: Reviewed & Not Pertinent Patient has homicidal ideation: No Neurological Medical History: Reports: Hx Seizures - 2006 FROM XANAX WITHDRAWAL. Denies: Hx Cerebrovascular Accident Renal/ Medical History: Denies: Hx Peritoneal Dialysis Musculoskeletal Medical History: Reports Hx Arthritis Psychiatric Medical History: Reports: Hx Anxiety, Hx Depression Past Surgical History: Reports: Hx Gastric Bypass Surgery, Hx Orthopedic Surgery - spinal surgery - Immunizations Hx Diphtheria, Pertussis, Tetanus Vaccination: No Vertical Provider Document - CONSTITUTIONAL Agree With Documented VS: Yes Exam Limitations: No Limitations General Appearance: WD/WN, No Apparent Distress Notes: PHYSICAL EXAMINATION: GENERAL: Well-appearing, well-nourished and in no acute distress. Patient repositioning frequently at bedside HEAD: Atraumatic, normocephalic. EYES: sclera clear, anicteric, conjunctiva are normal. ENT: nares patent, Moist mucous membranes. NECK: Normal range of motion, supple no lymphadenopathy LUNGS: respirations unlabored HEART: Regular rate and rhythm without murmurs EXTREMITIES: Normal range of motion, no pitting or edema. No cyanosis. Gait normal, pt ambulates without difficulty BACK: Left lower lumbar paraspinal tenderness, left SI joint tenderness, no lumbar midline tenderness, no deformities or step-offs. No CVA tenderness. NEUROLOGICAL: Cranial nerves grossly intact. Normal speech, normal gait. No saddle anesthesia. No foot drop PSYCH: Normal mood, normal affect. SKIN: Warm, Dry, normal turgor, no rashes or lesions noted. - INFECTION CONTROL TRAVEL OUTSIDE OF THE [place] IN LAST 30 DAYS: No Course - Re-evaluation Re-evalutation: 08/16/19 13:39 Patient has current prescription for oxycodone at home. Patient advised that I cannot write additional narcotics although her primary doctor can adjust her prescription as needed. Patient will be given a prescription for the lidocaine patches. Patient does report improvement of her pain symptoms at this time. The patient presents with low back pain without signs of spinal cord compression, cauda equina syndrome, infection, aneurysm, or other serious etiology. The patient is neurologically intact. Given the extremely risk of these diagnoses further testing and evaluation for these possibilities does not appear to be indicated at this time. Patient has been instructed to return if the symptoms worsen or change in any way. - Vital Signs Vital signs: Temp Pulse Resp BP Pulse Ox 98.6 F 81 16 145/93 H 97 08/16/19 09:08 08/16/19 08:44 08/16/19 08:44 08/16/19 08:44 08/16/19 08:44 - Diagnostic Test Radiology reviewed: Reports reviewed Discharge - Discharge Clinical Impression: Lumbar radiculopathy Sciatica Qualifiers: Laterality: left Qualified Code(s): M54.32 - Sciatica, left side Condition: Stable Disposition: HOME, SELF-CARE Instructions: Radiculopathy ([facility]), Sciatica ([facility]) Additional Instructions: Return immediately for any new or worsening symptoms Followup with your primary care provider, call tomorrow to make a followup appointment Follow-up with orthopedics as planned Follow-up with pain management for further evaluation Prescriptions: Lidocaine [Lidoderm 5% (700 mg) Transdermal Patch] 1 patch TP DAILY PRN #10 adh..patch PRN Reason: Referrals: CHUCHO KAHN MD [Primary Care Provider] - Follow up as needed [facility] [Provider Group] - Follow up as needed
--- NOTE | 2019-08-16 12:00 | RADIOLOGY REPORT (SQ) ---
EXAM DESCRIPTION: L SPINE WHOLE IMAGES COMPLETED DATE/TIME: 08/16/2019 11:39 am REASON FOR STUDY: low back pain COMPARISON: None. NUMBER OF VIEWS: Five views including obliques. TECHNIQUE: AP, lateral, oblique, and sacral radiographic images acquired of the lumbar spine. LIMITATIONS: None. FINDINGS: MINERALIZATION: Normal. SEGMENTATION: Normal. No transitional anatomy. ALIGNMENT: Normal. VERTEBRAE: Maintained height. No fracture or worrisome bone lesion. DISCS: Preserved height. No significant osteophytes or end plate irregularity. POSTERIOR ELEMENTS: Pedicles and facets are intact. No pars defect or posterior arch defects. HARDWARE: The patient is status post lumbosacral fusion with interbody spacer. There is no evidence of hardware fracture, perihardware lucency or migration. PARASPINAL SOFT TISSUES: Chain sutures are seen within the left upper quadrant. PELVIS: Intact as visualized. No fractures or worrisome bone lesions. SI joints intact. OTHER: No other significant finding. IMPRESSION: Status post lumbosacral fusion without evidence of hardware complication. TECHNICAL DOCUMENTATION: JOB ID: [id number] [employer]- All Rights Reserved Reading location - IP/workstation name: [email or web address]
[2019-08-16] MEDS ORDERED: LIDOCAINE 5% (700 MG) TRANSDERMAL ADH..PATCH TP ONE (12:23)
[2019-08-16 13:35] VITALS: BP 148/86
== END 2019-08-16 13:56 | disposition home or self-care (01) ==
LOC: ER 08:41
DX: M54.16 Radiculopathy, lumbar region (principal); M54.32 Sciatica, left side; F17.200 Nicotine dependence, unspecified, uncomplicated; Z98.84 Bariatric surgery status
CPT/HCPCS: 99283; 96372; 72110; J1885; J1170; A9270

== ENCOUNTER 2020-01-23 10:48 | Day surgery (SDC) | payer MEDICARE, MEDICAID ==
[~2020-01-23 10:48] MED LIST changes: +CEFAZOLIN 2 GM/D5W RTU 2 GM/50 ML RTUPB IV PRN; +DEXAMETHASONE SOD PHOS INJ 10 MG/1 ML VIAL ONE; +FENTANYL CITRATE INJ/PF 100 MCG/2 ML AMPUL ONE; +KETOROLAC TROMETHAMINE INJ/PF 30 MG/1 ML SDV ONE; +LIDOCAINE 2% INJ-PF (20 MG/ML) 10 ML AMPUL ONE; +MIDAZOLAM 2 MG/2 ML INJ ONE; +ONDANSETRON HCL INJ/PF 4 MG/2 ML SDV ONE; +PROPOFOL INJ 200 MG/20 ML VIAL IV ONE; -SUCCINYLCHOLINE CHLORIDE INJ 200 MG/10 ML VIAL ONE
[2020-01-23] MEDS ORDERED: BACITRACIN ZINC OINTMENT 15 GM ONE (12:57)
[2020-01-23] MEDS ORDERED: OXYMETAZOLINE HCL 0.05% NASAL SPRAY 15 ML BOTTLE ONE (12:58)
[2020-01-23] MEDS ORDERED: COCAINE HCL 4% TOPICAL SOLN 4 ML ONE (12:58)
[2020-01-23] MEDS: LIDOCAINE 2%/EPINEPHRINE INJ 1.7 ML CARTRIDGE ONE ×2 (13:23→14:00)
--- NOTE | 2020-01-23 14:25 | Operative Report ---
Operative Report-[facility] Operative Report: Date: 23 January 2020 History: 44-year-old female presents with a history of nasal dyspnea. Physical exam revealed a deviated nasal septum, bilateral nasal vestibular stenosis and inferior turbinate hypertrophy. Presents today for a septoplasty, repair nasal vestibular stenosis and turbinate reduction Pre-operative diagnosis: 1. Deviated nasal septum 2. Inferior turbinate hypertrophy, bilateral 3. Bilateral nasal vestibular stenosis Post operative diagnosis: same as above. Procedure: 1. Nasal septoplasty [CPT: 50184] 2. Inferior turbinate reduction, right side [CPT: 30918] 3 . Inferior turbinate reduction, left side [CPT: 06885] 4. Repair nasal vestibular stenosis, right side (CPT: 88898) 5. Repair nasal vestibular stenosis, left side (CPT: 62166) Surgeon: Marco Antonio Smith MD, [facility] Anesthia: DELONTE Description of the procedure: After receiving informed consent, the patient was brought to the operating room and placed supine on the operating table. After successful induction and intubation by anesthesia, cottonoids soaked with 4% cocaine replaced into each nasal cavity for approximately five minutes. They were removed andthe septum along with the inferior turbinate were injected with 2% Xylocaine with 1:100,000 epinephrine. The cottonoids were replaced. The patient was then prepped and draped in a sterile fashion. The cottonoids where then removed. A number 15 blade was used to make a eloina transfixtion incision on the left side. Next using a [place]wood and then A Chris elevator, a mucoperichondrial/mucoperiosteal flap was elevated back to the sphenoid rostrum. This was then elevated onto the nasal floor. A mucoperichondrial flap was elevated around the caudal edge of the septum and onto the right side. This exposed both sides of the cartilaginous septum. The osseocartilaginous junction was and a mucoperiosteal flap was elevated on the right side. Melara scissors were used to make horizontal cuts in the perpendicular plate of the ethmoid bone, superiorly and inferiorly. Blayne-Arboleda forceps were used to remove this. A v omeroethmoid spur was identified and the mucosa was carefully dissected from it. A V-chisel was used to remove this spur. An inferior cartilage spur was removed using a D knife . An anterior cartilaginous septal bowing was resected, resulting in straightening of the cartilaginous septum. Maxillary crest spur was removed using a V chisel. [place]-Cur[employer]'s were used to remove a high septal deflection in the area of the internal nasal valve. The septum was viewed with the flaps in place and found to be relatively straight. The middle turbinates were visible on both sides. The eloina transfixion incision was closed using 4-0 chromic and a 4-0 plain gut whip stitch was used to secure the septal flaps. Attention was then directed to the nasal valve area on the right, where the Quantuvis nasal airway remodeling system was used to repair the nasal vestibular stenosis. The handpiece was placed superiorly at the caudal margin of the upper lateral cartilage and the device was activated. This was repeated 2 more times marching inferiorly towards the piriform aperture. A similar procedure was done on the left. Attention was then directed to the inferior turbinates. Inferior turbinate reduction was performed using the [employer] turbinate system. Destruction of submucosal tissue was performed on the left inferior turbinate and then this turbinate was medialized and lateralized using a Sayer elevator. A similar procedure was performed on the right side. Silicon splints coated with bacitracin were placed into each nasal cavity and secured with a 2-0 prolene. Afrin soaked cottonoids were placed into each nasal cavity and secured to each other in front of the nose. The patient was then given back to anesthesia who successfully extubated them. The patient tolerated the procedure well without any complications. Estimated blood loss: 10 mL Fluids: 1200 mL The patient was transferred to the post anesthesia care unit in stable condition with spontaneous respirations.
[2020-01-23] MEDS ORDERED: HYDROCODONE/ACETAMINOPHEN 5-325 MG TABLET ONE (14:53)
== END 2020-01-23 15:22 | disposition home or self-care (01) ==
LOC: SC 10:48
PROVIDERS: ATTEND Otolaryngology
DX: J34.2 Deviated nasal septum (principal); J34.3 Hypertrophy of nasal turbinates; J34.89 Other specified disorders of nose and nasal sinuses; J30.9 Allergic rhinitis, unspecified; F17.210 Nicotine dependence, cigarettes, uncomplicated; D64.9 Anemia, unspecified; Z01.812 Encounter for preprocedural laboratory examination; Z20.828 Contact with and (suspected) exposure to other viral communicable diseases
CPT/HCPCS: 30520; 30140; 30465; U0003; J2250; A9270 ×3; J3490 ×2; C9046; J3010; J1885; J2405; J2704; J1100; J0690; C9803; 87635